=== PATIENT | male | born 1965 | race Hispanic/Latino ===

== ENCOUNTER 2018-11-18 19:18 | Emergency (ER) | payer MEDICAID, OTHER ==
[2018-11-18] MEDS ORDERED: ONDANSETRON ODT 4 MG TAB ONE (19:43)
[2018-11-18] MEDS ORDERED: MAG HYDROX/AL HYDROX/SIMETH ES 30 ML SUSP UDCUP ONE (20:02)
[2018-11-18] MEDS ORDERED: LIDOCAINE HCL 2% VISCOUS 15 ML UDCUP ONE (20:02)
[2018-11-18 20:09] LABS: BASOPHILS % (AUTO) 1.2 % (0.0-5.0); EOSINOPHILS % (AUTO) 4.5 % (0.0-8.0); HEMATOCRIT 41.1 % (42-54); LYMPHOCYTES % (AUTO) 30.3 % (21.0-51.0); MEAN CORPUSCULAR HEMOGLOBIN 30.6 pg (27.0-33.0); MEAN CORPUSCULAR HGB CONC 34.4 g/dL (32.0-36.0); MEAN CORPUSCULAR VOLUME 88.7 fL (79-99); MONOCYTES % (AUTO) 9.9 % (3.0-13.0); NEUTROPHILS % (AUTO) 54.1 % (40.0-77.0); NUCLEATED RED BLOOD CELLS 0.1 % (0.0-0.19); PLATELET COUNT (AUTO) 184 K/uL (130-400); RED BLOOD CELL COUNT(AUTO) 4.63 MIL/uL (4.50-6.20); RED CELL DISTRIBUTION WIDTH 13.5 % (11.0-15.5); WHITE BLOOD COUNT (AUTO) 7.4 K/uL (4.8-10.8)
[2018-11-18 20:11] LABS: APPEARANCE,URINE Clear (CLEAR); BILIRUBIN,URINE Negative (NEGATIVE); COLOR,URINE Yellow (YELLOW); GLUCOSE, URINE (UA) Negative (NEGATIVE); KETONES,URINE Negative (NEGATIVE); LEUKOCYTE ESTERASE ,URINE Negative (NEGATIVE); NITRATE,URINE Negative (NEGATIVE); OCCULT BLOOD,URINE Negative (NEGATIVE); PH,URINE 5.5 (5.0-8.0); PROTEIN,URINE Negative (NEGATIVE)
[2018-11-18 20:28] LABS: CREATININE 0.9 mg/dL (0.5-1.5); POTASSIUM 3.6 mmol/L (3.5-5.1)
[2018-11-18 20:32] LABS: ALBUMIN 3.9 g/dL (3.5-5.0); BILIRUBIN,DIRECT 0.1 mg/dL (0.0-0.3); BILIRUBIN,TOTAL 0.4 mg/dL (0.2-1.0)
== END 2018-11-18 22:12 | disposition home or self-care (01) ==
LOC: EDH 19:18
DX: A09 Infectious gastroenteritis and colitis, unspecified (principal); F20.9 Schizophrenia, unspecified; Z72.0 Tobacco use; Z91.011 Allergy to milk products
CPT/HCPCS: 36415; 80048; 80076; 81003; 83690; 85025

== ENCOUNTER 2018-12-24 22:05 | Emergency (ER) | payer OTHER | END 2018-12-24 23:13 | disposition home or self-care (01) | LOC: EDH 22:05 | DX: Z60.9 Problem related to social environment, unspecified (principal); F20.9 Schizophrenia, unspecified; R11.0 Nausea; Z91.011 Allergy to milk products; Z72.0 Tobacco use | CPT/HCPCS: 99281 ==

== ENCOUNTER 2018-12-31 22:09 | Emergency (ER) | payer OTHER ==
[2018-12-31 22:59] LABS: BASOPHILS % (AUTO) 1.1 % (0.0-5.0); EOSINOPHILS % (AUTO) 15.4 % (0.0-8.0); HEMATOCRIT 34.6 % (42-54); LYMPHOCYTES % (AUTO) 21.1 % (21.0-51.0); MEAN CORPUSCULAR HEMOGLOBIN 30.5 pg (27.0-33.0); MEAN CORPUSCULAR HGB CONC 34.1 g/dL (32.0-36.0); MEAN CORPUSCULAR VOLUME 89.4 fL (79-99); MONOCYTES % (AUTO) 6.9 % (3.0-13.0); NEUTROPHILS % (AUTO) 55.5 % (40.0-77.0); NUCLEATED RED BLOOD CELLS 0.1 % (0.0-0.19); PLATELET COUNT (AUTO) 198 K/uL (130-400); RED BLOOD CELL COUNT(AUTO) 3.86 MIL/uL (4.50-6.20); RED CELL DISTRIBUTION WIDTH 14.1 % (11.0-15.5); WHITE BLOOD COUNT (AUTO) 5.1 K/uL (4.8-10.8)
[2018-12-31 23:00] LABS: APPEARANCE,URINE Clear (CLEAR); BILIRUBIN,URINE Negative (NEGATIVE); COLOR,URINE Yellow (YELLOW); GLUCOSE, URINE (UA) Negative (NEGATIVE); KETONES,URINE Negative (NEGATIVE); LEUKOCYTE ESTERASE ,URINE Negative (NEGATIVE); NITRATE,URINE Negative (NEGATIVE); OCCULT BLOOD,URINE Negative (NEGATIVE); PROTEIN,URINE Negative (NEGATIVE)
[2018-12-31] MEDS ORDERED: FAMOTIDINE 20MG TAB 20 MG TAB ONE (23:01)
[2018-12-31 23:07] LABS: AMPHET/METH SCREEN,URINE NEGATIVE (NEGATIVE); BARBITURATE SCREEN, URINE NEGATIVE (NEGATIVE); BENZODIAZEPINES SCREEN,URINE POSITIVE (NEGATIVE); CANNABINOID SCREEN,URINE NEGATIVE (NEGATIVE); CARBON DIOXIDE 28 mmol/L (21-32); CHLORIDE 105 mmol/L (101-111); COCAINE SCREEN,URINE NEGATIVE (NEGATIVE); CREATININE 0.9 mg/dL (0.5-1.5); GLOMERULAR FILTR. RATE CALC 95 mL/min (>60); GLUCOSE,RANDOM 114 mg/dL (70-105); OPIATE SCREEN,URINE NEGATIVE (NEGATIVE); PHENCYCLIDINE SCREEN,URINE NEGATIVE (NEGATIVE); POTASSIUM 3.4 mmol/L (3.5-5.1); SODIUM SERUM 141 mmol/L (136-145); UREA NITROGEN, BLOOD 10 mg/dL (7-18)
[2018-12-31 23:12] LABS: ALANINE AMINOTRANSFERASE 45 U/L (12-78); ALBUMIN 3.2 g/dL (3.5-5.0); ASPARTATE AMINOTRANSFERASE 44 U/L (10-37); BILIRUBIN,TOTAL 0.2 mg/dL (0.2-1.0); CREATINE KINASE, TOTAL 360 U/L (21-232); SALICYLATE 3.9 mg/dL (2.8-20.0); TOTAL PROTEIN, SERUM 6.4 g/dL (6.0-8.3)
[2018-12-31 23:14] LABS: ACETAMINOPHEN < 1 mcg/mL (10-29)
== END 2019-01-01 03:15 | disposition home or self-care (01) ==
LOC: EDH 22:09
DX: F20.9 Schizophrenia, unspecified (principal); J45.909 Unspecified asthma, uncomplicated; Z72.0 Tobacco use
CPT/HCPCS: 36415; 80053; 80305; 81003; 82550; 85025; 99284; G0480; G0481

== ENCOUNTER 2019-01-07 02:44 | Emergency (ER) | payer OTHER ==
[2019-01-07] MEDS ORDERED: TETANUS/DIPHTHERIA TOXOID [ADULT] 0.5 ML VIAL IM ONE (03:25)
[2019-01-07] MEDS ORDERED: SULFAMETHOX-TMP DS 800/160 TAB ONE (03:25)
== END 2019-01-07 03:40 | disposition home or self-care (01) ==
LOC: EDH 02:44
DX: S61.201D Unspecified open wound of left index finger without damage to nail, subsequent encounter (principal); L08.9 Local infection of the skin and subcutaneous tissue, unspecified; J45.909 Unspecified asthma, uncomplicated; F20.9 Schizophrenia, unspecified; Z88.6 Allergy status to analgesic agent; X58.XXXD Exposure to other specified factors, subsequent encounter
CPT/HCPCS: 90471; 90714

== ENCOUNTER 2020-12-02 10:47 | Emergency (ER) | payer OTHER ==
[~2020-12-02] VITALS: Ht 167.6 cm; Wt 63.5 kg
[2020-12-02] MEDS ORDERED: ONDANSETRON ODT 4MG TAB SL SCH (11:30)
[2020-12-02 11:50] LABS: APPEARANCE,URINE Clear (CLEAR); BILIRUBIN,URINE Negative (NEGATIVE); COLOR,URINE Yellow (YELLOW); GLUCOSE, URINE (UA) Negative (NEGATIVE); KETONES,URINE Negative (NEGATIVE); LEUKOCYTE ESTERASE ,URINE Negative (NEGATIVE); NITRATE,URINE Negative (NEGATIVE); OCCULT BLOOD,URINE Negative (NEGATIVE); PH,URINE 7.5 (5.0-8.0); PROTEIN,URINE Negative (NEGATIVE)
[2020-12-02 11:58] LABS: AMPHET/METH SCREEN,URINE NEGATIVE (NEGATIVE); BARBITURATE SCREEN, URINE NEGATIVE (NEGATIVE); BENZODIAZEPINES SCREEN,URINE NEGATIVE (NEGATIVE); CANNABINOID SCREEN,URINE NEGATIVE (NEGATIVE); COCAINE SCREEN,URINE NEGATIVE (NEGATIVE); OPIATE SCREEN,URINE NEGATIVE (NEGATIVE); PHENCYCLIDINE SCREEN,URINE NEGATIVE (NEGATIVE)
[2020-12-02 12:04] VITALS: BP 125/80
[2020-12-02 12:29] LABS: BASOPHILS % (AUTO) 0.8 % (0.0-5.0); EOSINOPHILS % (AUTO) 2.1 % (0.0-8.0); HEMATOCRIT 42.2 % (42-54); LYMPHOCYTES % (AUTO) 38.4 % (21.0-51.0); MEAN CORPUSCULAR HEMOGLOBIN 29.3 pg (27.0-33.0); MEAN CORPUSCULAR HGB CONC 33.4 g/dL (32.0-36.0); MEAN CORPUSCULAR VOLUME 87.6 fL (79-99); MONOCYTES % (AUTO) 12.6 % (3.0-13.0); PLATELET COUNT (AUTO) 181 K/uL (130-400); RED BLOOD CELL COUNT(AUTO) 4.82 MIL/uL (4.50-6.20); RED CELL DISTRIBUTION WIDTH 12.7 % (11.0-15.5); WHITE BLOOD COUNT (AUTO) 7.2 K/uL (4.8-10.8)
[2020-12-02 12:38] LABS: CARBON DIOXIDE 25 mmol/L (21-32); CHLORIDE 105 mmol/L (101-111); CREATININE 0.9 mg/dL (0.5-1.5); GLOMERULAR FILTR. RATE CALC 94 mL/min (>60); GLUCOSE,RANDOM 99 mg/dL (70-105); POTASSIUM 3.3 mmol/L (3.5-5.1); SODIUM SERUM 139 mmol/L (136-145); UREA NITROGEN, BLOOD 9 mg/dL (7-18)
[2020-12-02 12:44] LABS: ALANINE AMINOTRANSFERASE 33 U/L (12-78); ALBUMIN 3.8 g/dL (3.5-5.0); ALCOHOL, BLOOD < 3 mg/dL (0-10); ASPARTATE AMINOTRANSFERASE 25 U/L (10-37); BILIRUBIN,TOTAL 0.3 mg/dL (0.2-1.0); CREATINE KINASE, TOTAL 273 U/L (21-232); SALICYLATE 2.8 mg/dL (2.8-20.0); TOTAL PROTEIN, SERUM 7.1 g/dL (6.0-8.3)
[2020-12-02 12:46] LABS: ACETAMINOPHEN < 1 mcg/mL (10-29)
== END 2020-12-02 17:05 | disposition home or self-care (01) ==
LOC: EDH 10:47
DX: F20.9 Schizophrenia, unspecified (principal); J45.909 Unspecified asthma, uncomplicated; F31.9 Bipolar disorder, unspecified; Z88.6 Allergy status to analgesic agent; Z91.011 Allergy to milk products
CPT/HCPCS: 36415; 80053; 80305; 81003; 82550; 85025; 93005; 99284; G0481

== ENCOUNTER → 2021-02-24 | Emergency (ER) | payer OTHER | END | disposition left against medical advice (07) | LOC: EDH 17:10 | DX: Z53.21 Procedure and treatment not carried out due to patient leaving prior to being seen by health care provider (principal) ==

== ENCOUNTER 2021-09-20 17:56 | Emergency (ER) | payer OTHER ==
[2021-09-20] MEDS ORDERED: 0.9%NACL 1000ML 1,000 ML IV SCH (18:30)
[2021-09-20] MEDS ORDERED: ONDANSETRON 4MG INJ IVP ONE (18:30)
[2021-09-20 18:34] LABS: APPEARANCE,URINE CLEAR (CLEAR); BILIRUBIN,URINE SMALL (NEGATIVE); COLOR,URINE YELLOW (YELLOW); GLUCOSE, URINE (UA) 100 mg/dL (NEGATIVE); KETONES,URINE >=80 mg/dL (NEGATIVE); LEUKOCYTE ESTERASE ,URINE NEGATIVE (NEGATIVE); NITRATE,URINE NEGATIVE (NEGATIVE); OCCULT BLOOD,URINE NEGATIVE (NEGATIVE); PROTEIN,URINE TRACE mg/dL (NEGATIVE)
[2021-09-20 18:40] LABS: AMPHET/METH SCREEN,URINE NEGATIVE (NEGATIVE); BARBITURATE SCREEN, URINE NEGATIVE (NEGATIVE); BENZODIAZEPINES SCREEN,URINE NEGATIVE (NEGATIVE); CANNABINOID SCREEN,URINE NEGATIVE (NEGATIVE); COCAINE SCREEN,URINE POSITIVE (NEGATIVE); PHENCYCLIDINE SCREEN,URINE NEGATIVE (NEGATIVE)
[2021-09-20 18:41] LABS: BACTERIA,URINE Few /HPF (None Seen); RBC,URINE 0-1 /HPF (0-1); WBC,URINE 0-1 /HPF (0-1)
[2021-09-20 18:42] LABS: HYALINE CASTS, URINE 0-1 /LPF (0-1 /LPF); MUCUS,URINE Moderate LPF (None Seen); SQUAMOUS EPITHELIAL CELL,UR Few /HPF (0-2)
[2021-09-20 18:58] LABS: BASOPHILS % (AUTO) 0.7 % (0.0-5.0); EOSINOPHILS % (AUTO) 1.5 % (0.0-8.0); HEMATOCRIT 38.1 % (42-54); LYMPHOCYTES % (AUTO) 13.6 % (21.0-51.0); MEAN CORPUSCULAR HEMOGLOBIN 29.3 pg (27.0-33.0); MEAN CORPUSCULAR HGB CONC 34.4 g/dL (32.0-36.0); MEAN CORPUSCULAR VOLUME 85.2 fL (79-99); MONOCYTES % (AUTO) 13.6 % (3.0-13.0); NEUTROPHILS % (AUTO) 70.3 % (40.0-77.0); PLATELET COUNT (AUTO) 172 K/uL (130-400); RED BLOOD CELL COUNT(AUTO) 4.47 MIL/uL (4.50-6.20); WHITE BLOOD COUNT (AUTO) 7.2 K/uL (4.8-10.8)
[2021-09-20] MEDS ORDERED: LORAZEPAM 0.5 MG TABLET PO ONE (19:00)
[2021-09-20 19:15] LABS: ALBUMIN 3.8 g/dL (3.5-5.0); TOTAL PROTEIN, SERUM 7.1 g/dL (6.0-8.3)
[2021-09-20 19:17] LABS: POTASSIUM 2.8 mmol/L (3.5-5.1)
[2021-09-20] MEDS ORDERED: POTASSIUM BICARB/CIT AC 25 MEQ TABLET.EFF ONE (19:27)
[2021-09-20] MEDS ORDERED: POTASSIUM BICARB/CIT AC 25 MEQ TABLET.EFF PO ONE (19:30)
[2021-09-20 19:50] VITALS: BP 129/78
[2021-09-20] MEDS ORDERED: POTA-187 PO (19:53)
[2021-09-23 14:11] LABS: OPIATES SCREEN URINE Negative ng/mL (Cutoff=300)
== END 2021-09-20 19:56 | disposition home or self-care (01) ==
LOC: EDH 17:56
DX: E87.6 Hypokalemia (principal); E86.0 Dehydration; F14.10 Cocaine abuse, uncomplicated; Z20.822 Contact with and (suspected) exposure to COVID-19; Z88.6 Allergy status to analgesic agent
CPT/HCPCS: 99284; 96374; 71045; 87635; 96361; 84484; 80053; 80305; 85025; 87804 ×2; 36415; 81001; C9803; J7030; J2405 ×2

== ENCOUNTER 2021-09-23 17:19 | Emergency (ER) | payer OTHER ==
[~2021-09-23] VITALS: Ht 165.1 cm; Wt 90.7 kg
[~2021-09-23 17:19] MED LIST: POTA-187 PO
[2021-09-23 18:19] LABS: BASOPHILS % (AUTO) 0.6 % (0.0-5.0); EOSINOPHILS % (AUTO) 3.2 % (0.0-8.0); HEMATOCRIT 37.1 % (42-54); LYMPHOCYTES % (AUTO) 16.3 % (21.0-51.0); MEAN CORPUSCULAR HEMOGLOBIN 29.4 pg (27.0-33.0); MEAN CORPUSCULAR HGB CONC 34.8 g/dL (32.0-36.0); MEAN CORPUSCULAR VOLUME 84.5 fL (79-99); MONOCYTES % (AUTO) 12.4 % (3.0-13.0); NEUTROPHILS % (AUTO) 67.3 % (40.0-77.0); PLATELET COUNT (AUTO) 233 K/uL (130-400); RED BLOOD CELL COUNT(AUTO) 4.39 MIL/uL (4.50-6.20); WHITE BLOOD COUNT (AUTO) 6.2 K/uL (4.8-10.8)
[2021-09-23 18:27] LABS: SODIUM SERUM 141 mmol/L (136-145)
[2021-09-23] MEDS ORDERED: ACETAMINOPHEN 500 MG TABLET PO ONE (18:30)
[2021-09-23 18:32] LABS: CARBON DIOXIDE 26 mmol/L (21-32); CHLORIDE 103 mmol/L (101-111); CREATININE 1.1 mg/dL (0.5-1.5); GLUCOSE,RANDOM 98 mg/dL (70-105); UREA NITROGEN, BLOOD 10 mg/dL (7-18)
[2021-09-23] MEDS ORDERED: 0.9%NACL 1000ML 1,000 ML IV SCH (18:33)
[2021-09-23 18:40] LABS: ASPARTATE AMINOTRANSFERASE 161 U/L (10-37)
[2021-09-23 18:46] LABS: ACETAMINOPHEN < 1 mcg/mL (10-29); ALANINE AMINOTRANSFERASE 157 U/L (12-78); ALBUMIN 3.8 g/dL (3.5-5.0); ALCOHOL, BLOOD < 3 mg/dL (0-10); GLOMERULAR FILTR. RATE CALC 83 mL/min (>60); SALICYLATE < 2.8 mg/dL (2.8-20.0); TOTAL PROTEIN, SERUM 7.1 g/dL (6.0-8.3)
[2021-09-23 18:47] LABS: CREATINE KINASE, TOTAL 860 U/L (21-232)
[2021-09-23] MEDS ORDERED: 0.9%NACL 1000ML 1,000 ML IV ONE (19:00)
[2021-09-23 19:21] VITALS: BP 122/67
[2021-09-23] MEDS ORDERED: POTASSIUM BICARB/CIT AC 25 MEQ TABLET.EFF PO ONE (19:30)
== END 2021-09-23 19:51 | disposition left against medical advice (07) ==
LOC: EDH 17:19
DX: T67.5XXA Heat exhaustion, unspecified, initial encounter (principal); E86.0 Dehydration; M62.82 Rhabdomyolysis; Z79.899 Other long term (current) drug therapy; Z88.6 Allergy status to analgesic agent; X58.XXXA Exposure to other specified factors, initial encounter; Y93.89 Activity, other specified; Y92.89 Other specified places as the place of occurrence of the external cause; Y99.8 Other external cause status
CPT/HCPCS: 99285; 71045; 82550; 80053; 85025; 83605; 36415; 93005; G0481

== ENCOUNTER 2021-09-24 14:50 | Emergency (ER) | payer OTHER ==
[~2021-09-24] VITALS: Ht 162.6 cm; Wt 61.7 kg
[2021-09-24 15:37] LABS: BASOPHILS % (AUTO) 0.9 % (0.0-5.0); EOSINOPHILS % (AUTO) 4.3 % (0.0-8.0); HEMATOCRIT 36.4 % (42-54); LYMPHOCYTES % (AUTO) 24.7 % (21.0-51.0); MEAN CORPUSCULAR HEMOGLOBIN 29.2 pg (27.0-33.0); MEAN CORPUSCULAR HGB CONC 34.3 g/dL (32.0-36.0); NEUTROPHILS % (AUTO) 55.9 % (40.0-77.0); PLATELET COUNT (AUTO) 229 K/uL (130-400); RED BLOOD CELL COUNT(AUTO) 4.28 MIL/uL (4.50-6.20); RED CELL DISTRIBUTION WIDTH 13.3 % (11.0-15.5); WHITE BLOOD COUNT (AUTO) 5.8 K/uL (4.8-10.8)
[2021-09-24 15:51] LABS: CARBON DIOXIDE 26 mmol/L (21-32); CHLORIDE 105 mmol/L (101-111); CREATININE 0.9 mg/dL (0.5-1.5); GLOMERULAR FILTR. RATE CALC 93 mL/min (>60); GLUCOSE,RANDOM 102 mg/dL (70-105); SODIUM SERUM 140 mmol/L (136-145); UREA NITROGEN, BLOOD 12 mg/dL (7-18)
[2021-09-24 15:56] LABS: ALANINE AMINOTRANSFERASE 124 U/L (12-78); ALBUMIN 3.7 g/dL (3.5-5.0); ALCOHOL, BLOOD < 3 mg/dL (0-10); ASPARTATE AMINOTRANSFERASE 107 U/L (10-37); TOTAL PROTEIN, SERUM 6.7 g/dL (6.0-8.3)
[2021-09-24 15:57] LABS: ACETAMINOPHEN < 1 mcg/mL (10-29); SALICYLATE < 2.8 mg/dL (2.8-20.0)
[2021-09-24] MEDS ORDERED: POTASSIUM BICARB/CIT AC 25 MEQ TABLET.EFF PO ONE ×2 (16:30→23:00)
[2021-09-24] MEDS ORDERED: THIAMINE HCL 100 MG/ML 2ML VIAL IVP SCH (20:30)
[2021-09-24] MEDS ORDERED: 0.9%NACL 1000ML 1,000 ML IV ONE ×2 (20:30→23:00)
[2021-09-25 08:07] LABS: AMPHET/METH SCREEN,URINE NEGATIVE (NEGATIVE); BENZODIAZEPINES SCREEN,URINE NEGATIVE (NEGATIVE); CANNABINOID SCREEN,URINE NEGATIVE (NEGATIVE); COCAINE SCREEN,URINE NEGATIVE (NEGATIVE); PHENCYCLIDINE SCREEN,URINE NEGATIVE (NEGATIVE)
[2021-09-25 08:15] LABS: APPEARANCE,URINE CLEAR (CLEAR); BILIRUBIN,URINE SMALL (NEGATIVE); COLOR,URINE YELLOW (YELLOW); GLUCOSE, URINE (UA) NEGATIVE (NEGATIVE); KETONES,URINE >=80 mg/dL (NEGATIVE); LEUKOCYTE ESTERASE ,URINE NEGATIVE (NEGATIVE); NITRATE,URINE NEGATIVE (NEGATIVE); OCCULT BLOOD,URINE NEGATIVE (NEGATIVE); PROTEIN,URINE NEGATIVE (NEGATIVE); UROBILINOGEN,URINE >=8.0 mg/dL (0.2-1.0)
[2021-09-25 08:37] LABS: BACTERIA,URINE Rare /HPF (None Seen); RBC,URINE 0-1 /HPF (0-1); SQUAMOUS EPITHELIAL CELL,UR Rare /HPF (0-2); WBC,URINE 0-1 /HPF (0-1)
[2021-09-25] MEDS ORDERED: DiphenhydrAMINE HCL 50 MG/ML VIAL ONE (14:37)
[2021-09-25] MEDS ORDERED: DIAZEPAM 5 MG/ML 2 ML SYG ONE (14:38)
[2021-09-25] MEDS: HALOPERIDOL INJ 5 MG/ML VIAL ONE ×2 (14:44→14:45)
[2021-09-25] MEDS ORDERED: DiphenhydrAMINE HCL 50 MG/ML VIAL IM ONE (15:00)
[2021-09-25] MEDS ORDERED: HALOPERIDOL INJ 5 MG/ML VIAL IM SCH (15:00)
[2021-09-25] MEDS ORDERED: DIAZEPAM 5 MG/ML 2 ML SYG IM ONE (15:00)
[2021-09-25] MEDS ORDERED: LORAZEPAM 2 MG/ML 1 ML VIAL IM ONE (15:00)
[2021-09-27 06:35] VITALS: BP 133/76
[2021-09-28 06:14] LABS: OPIATES SCREEN URINE Negative ng/mL (Cutoff=300)
== END 2021-09-27 10:32 ==
LOC: EDH 14:50
DX: F20.9 Schizophrenia, unspecified (principal); F12.10 Cannabis abuse, uncomplicated; R41.0 Disorientation, unspecified; Z20.822 Contact with and (suspected) exposure to COVID-19; Z88.8 Allergy status to other drugs, medicaments and biological substances; Z88.6 Allergy status to analgesic agent
CPT/HCPCS: 99285; 96374; 96361; 87635; 80053; 80305; 85025; 81001; 36415; 93005; 96372 ×3; G0481; C9803; J3411; J1200; J1630; J3360

== ENCOUNTER 2022-10-14 20:39 | Emergency (ER) | payer OTHER ==
[~2022-10-14] VITALS: Ht 167.6 cm; Wt 79.4 kg
[2022-10-14] MEDS ORDERED: ONDANSETRON 4MG INJ ONE (20:47)
[2022-10-14] MEDS ORDERED: ONDANSETRON 4MG INJ IVP ONE (21:00)
[2022-10-14] MEDS ORDERED: 0.9%NACL 1000ML 1,000 ML IV ONE ×2 (21:00→22:30)
[2022-10-14 21:04] LABS: BASOPHILS # (AUTO) 0.05 K/uL (0.00-0.20); BASOPHILS % (AUTO) 0.6 % (0.0-5.0); EOSINOPHILS # (AUTO) 0.02 K/uL (0.00-0.70); EOSINOPHILS % (AUTO) 0.2 % (0.0-8.0); HEMATOCRIT 41.7 % (42-54); IMMATURE GRANULOCYTE ABSOLUTE 0.04 K/uL (0-1); LYMPHOCYTES # (AUTO) 1.7 K/uL (1.0-4.8); LYMPHOCYTES % (AUTO) 19.1 % (21.0-51.0); MEAN CORPUSCULAR HEMOGLOBIN 30.1 pg (27.0-33.0); MEAN CORPUSCULAR HGB CONC 35.3 g/dL (32.0-36.0); MEAN CORPUSCULAR VOLUME 85.5 fL (79-99); MONOCYTES # (AUTO) 0.6 K/uL (0.1-1.0); MONOCYTES % (AUTO) 6.8 % (3.0-13.0); NEUTROPHILS # (AUTO) 6.3 K/uL (1.8-7.7); NEUTROPHILS % (AUTO) 72.8 % (40.0-77.0); PLATELET COUNT (AUTO) 190 K/uL (130-400); RED BLOOD CELL COUNT(AUTO) 4.88 MIL/uL (4.50-6.20); WHITE BLOOD COUNT (AUTO) 8.7 K/uL (4.8-10.8)
[2022-10-14 21:39] LABS: APPEARANCE,URINE CLEAR (CLEAR); BILIRUBIN,URINE NEGATIVE (NEGATIVE); COLOR,URINE LIGHT-YELLOW (YELLOW); GLUCOSE, URINE (UA) 500 mg/dL (NEGATIVE); KETONES,URINE NEGATIVE (NEGATIVE); LEUKOCYTE ESTERASE ,URINE NEGATIVE Leu/uL (NEGATIVE); NITRATE,URINE NEGATIVE (NEGATIVE); OCCULT BLOOD,URINE NEGATIVE (NEGATIVE); PH,URINE 6.5 (5.0-8.0); PROTEIN,URINE NEGATIVE (NEGATIVE); UROBILINOGEN,URINE 0.2 mg/dL (0.2-1.0)
[2022-10-14 21:46] LABS: AMPHET/METH SCREEN,URINE NEGATIVE (NEGATIVE); BARBITURATE SCREEN, URINE NEGATIVE (NEGATIVE); BENZODIAZEPINES SCREEN,URINE NEGATIVE (NEGATIVE); CANNABINOID SCREEN,URINE NEGATIVE (NEGATIVE); COCAINE SCREEN,URINE NEGATIVE (NEGATIVE); OPIATE SCREEN,URINE NEGATIVE (NEGATIVE); PHENCYCLIDINE SCREEN,URINE NEGATIVE (NEGATIVE)
[2022-10-14 21:48] LABS: ADD UA MICROSCOPIC YES
[2022-10-14 21:49] LABS: BACTERIA,URINE RARE /HPF (None Seen); MUCUS,URINE RARE LPF (None Seen); RBC,URINE 0-1 /HPF (0-1); WBC,URINE 0-1 /HPF (0-1)
[2022-10-14 21:53] LABS: ALCOHOL, BLOOD < 3 mg/dL (0-10)
[2022-10-14 21:54] LABS: ACETAMINOPHEN < 1 mcg/mL (10-29); SALICYLATE < 2.8 mg/dL (2.8-20.0)
[2022-10-14 21:55] LABS: ALBUMIN 3.6 g/dL (3.5-5.0); BILIRUBIN,TOTAL 0.3 mg/dL (0.2-1.0); CREATININE 0.8 mg/dL (0.5-1.5); TOTAL PROTEIN, SERUM 6.7 g/dL (6.0-8.3)
[2022-10-14 21:57] LABS: POTASSIUM 2.9 mmol/L (3.5-5.1)
[2022-10-14 22:27] VITALS: BP 140/88; PULSE 102; RESP 16; O2SAT 96
[2022-10-14] MEDS ORDERED: POTASSIUM BICARB/CIT AC 25 MEQ TABLET.EFF PO ONE (22:30)
== END 2022-10-15 01:11 | disposition left against medical advice (07) ==
LOC: EDH 20:39
DX: R11.10 Vomiting, unspecified (principal); R10.9 Unspecified abdominal pain; R19.7 Diarrhea, unspecified; E86.0 Dehydration; R07.89 Other chest pain; F20.9 Schizophrenia, unspecified; Z88.6 Allergy status to analgesic agent; Z88.8 Allergy status to other drugs, medicaments and biological substances
CPT/HCPCS: 99285; 74176; 96374; 71045; 96361; 84484; 80053; 80305; 83690; 85025; 36415; 93005; 81001; J7030; J2405; G0481

== ENCOUNTER 2022-10-15 07:56 | Emergency (ER) | payer OTHER ==
[~2022-10-15] VITALS: Ht 160 cm; Wt 79.5 kg
[2022-10-15 08:30] LABS: APPEARANCE,URINE CLEAR (CLEAR); BILIRUBIN,URINE NEGATIVE (NEGATIVE); COLOR,URINE LIGHT-YELLOW (YELLOW); GLUCOSE, URINE (UA) NEGATIVE (NEGATIVE); KETONES,URINE NEGATIVE (NEGATIVE); LEUKOCYTE ESTERASE ,URINE NEGATIVE Leu/uL (NEGATIVE); NITRATE,URINE NEGATIVE (NEGATIVE); OCCULT BLOOD,URINE NEGATIVE (NEGATIVE); PROTEIN,URINE NEGATIVE (NEGATIVE); UROBILINOGEN,URINE 0.2 mg/dL (0.2-1.0)
[2022-10-15 08:36] LABS: ADD UA MICROSCOPIC NO
[2022-10-15 08:36] LABS: BASOPHILS # (AUTO) 0.05 K/uL (0.00-0.20); BASOPHILS % (AUTO) 0.6 % (0.0-5.0); HEMATOCRIT 40.9 % (42-54); IMMATURE GRANULOCYTE ABSOLUTE 0.03 K/uL (0-1); LYMPHOCYTES # (AUTO) 1.7 K/uL (1.0-4.8); MEAN CORPUSCULAR HEMOGLOBIN 29.9 pg (27.0-33.0); MEAN CORPUSCULAR HGB CONC 34.2 g/dL (32.0-36.0); MEAN CORPUSCULAR VOLUME 87.2 fL (79-99); MONOCYTES # (AUTO) 0.9 K/uL (0.1-1.0); MONOCYTES % (AUTO) 10.2 % (3.0-13.0); NEUTROPHILS # (AUTO) 5.9 K/uL (1.8-7.7); NEUTROPHILS % (AUTO) 68.8 % (40.0-77.0); PLATELET COUNT (AUTO) 193 K/uL (130-400); RED BLOOD CELL COUNT(AUTO) 4.69 MIL/uL (4.50-6.20); RED CELL DISTRIBUTION WIDTH 13.2 % (11.0-15.5); WHITE BLOOD COUNT (AUTO) 8.6 K/uL (4.8-10.8)
[2022-10-15 08:46] LABS: CARBON DIOXIDE 25 mmol/L (21-32); CHLORIDE 98 mmol/L (101-111); CREATININE 0.8 mg/dL (0.5-1.5); GLOMERULAR FILTR. RATE CALC 105 mL/min (>90); GLUCOSE,RANDOM 110 mg/dL (70-105); POTASSIUM 3.3 mmol/L (3.5-5.1); SODIUM SERUM 135 mmol/L (136-145); UREA NITROGEN, BLOOD 5 mg/dL (7-18)
[2022-10-15 08:49] LABS: AMPHET/METH SCREEN,URINE NEGATIVE (NEGATIVE); BARBITURATE SCREEN, URINE NEGATIVE (NEGATIVE); BENZODIAZEPINES SCREEN,URINE NEGATIVE (NEGATIVE); CANNABINOID SCREEN,URINE NEGATIVE (NEGATIVE); COCAINE SCREEN,URINE NEGATIVE (NEGATIVE); OPIATE SCREEN,URINE NEGATIVE (NEGATIVE); PHENCYCLIDINE SCREEN,URINE NEGATIVE (NEGATIVE)
[2022-10-15 08:50] LABS: ALANINE AMINOTRANSFERASE 81 U/L (12-78); ASPARTATE AMINOTRANSFERASE 72 U/L (10-37); BILIRUBIN,TOTAL 0.5 mg/dL (0.2-1.0); TOTAL PROTEIN, SERUM 7.4 g/dL (6.0-8.3)
[2022-10-15 08:51] LABS: ACETAMINOPHEN < 1 mcg/mL (10-29); ALCOHOL, BLOOD < 3 mg/dL (0-10); SALICYLATE < 2.8 mg/dL (2.8-20.0)
[2022-10-15 08:52] LABS: COVID19 (SARS ANTIGEN RAPID) PRESUMPTIVE NEGATIVE (NEGATIVE); INFLUENZA TYPE A Negative For Type A (NEGATIVE); INFLUENZA TYPE B Negative For Type B (NEGATIVE)
[2022-10-15 11:46] VITALS: BP 132/72; PULSE 74; RESP 16; O2SAT 98
== END 2022-10-15 11:52 | disposition home or self-care (01) ==
LOC: EDH 07:56
DX: F20.9 Schizophrenia, unspecified (principal); Z98.890 Other specified postprocedural states; Z88.6 Allergy status to analgesic agent; Z88.8 Allergy status to other drugs, medicaments and biological substances; Z91.011 Allergy to milk products
CPT/HCPCS: 99285; 71045; 87426; 80053; 80305; 83690; 85025; 87804 ×2; 36415; 93005; 81003; G0481

== ENCOUNTER 2022-10-16 17:50 | Emergency (ER) | payer OTHER ==
[~2022-10-16] VITALS: Ht 157.5 cm; Wt 68.0 kg
[~2022-10-16 17:50] MED LIST changes: -LORAZEPAM 1 MG TABLET ONE
== END 2022-10-16 18:58 | disposition left against medical advice (07) ==
LOC: EDH 17:50
DX: R11.10 Vomiting, unspecified (principal); Z53.21 Procedure and treatment not carried out due to patient leaving prior to being seen by health care provider
CPT/HCPCS: 99281

== ENCOUNTER → 2022-10-16 | Emergency (ER) | payer MEDICAID, OTHER ==
[~2022-10-16] VITALS: Ht 170.2 cm; Wt 74.8 kg
[~2022-10-16] MED LIST changes: +LORAZEPAM 1 MG TABLET ONE
[2022-10-16 04:52] VITALS: O2SAT 96
[2022-10-16 04:53] VITALS: BP 120/84; PULSE 117; RESP 16
[2022-10-16 05:27] LABS: BASOPHILS # (AUTO) 0.06 K/uL (0.00-0.20); BASOPHILS % (AUTO) 0.7 % (0.0-5.0); EOSINOPHILS % (AUTO) 2.2 % (0.0-8.0); HEMATOCRIT 44.2 % (42-54); IMMATURE GRANULOCYTE ABSOLUTE 0.03 K/uL (0-1); LYMPHOCYTES # (AUTO) 2.3 K/uL (1.0-4.8); MEAN CORPUSCULAR HGB CONC 34.8 g/dL (32.0-36.0); MEAN CORPUSCULAR VOLUME 86.2 fL (79-99); MONOCYTES % (AUTO) 10.6 % (3.0-13.0); NEUTROPHILS # (AUTO) 5.6 K/uL (1.8-7.7); NEUTROPHILS % (AUTO) 61.2 % (40.0-77.0); PLATELET COUNT (AUTO) 209 K/uL (130-400); RED BLOOD CELL COUNT(AUTO) 5.13 MIL/uL (4.50-6.20); RED CELL DISTRIBUTION WIDTH 13.5 % (11.0-15.5); WHITE BLOOD COUNT (AUTO) 9.2 K/uL (4.8-10.8)
[2022-10-16 05:30] LABS: APPEARANCE,URINE CLEAR (CLEAR); BILIRUBIN,URINE NEGATIVE (NEGATIVE); COLOR,URINE YELLOW (YELLOW); GLUCOSE, URINE (UA) NEGATIVE (NEGATIVE); KETONES,URINE 10 mg/dL (NEGATIVE); LEUKOCYTE ESTERASE ,URINE NEGATIVE Leu/uL (NEGATIVE); NITRATE,URINE NEGATIVE (NEGATIVE); OCCULT BLOOD,URINE NEGATIVE (NEGATIVE); PROTEIN,URINE 10 mg/dL (NEGATIVE); UROBILINOGEN,URINE 0.2 mg/dL (0.2-1.0)
[2022-10-16 05:31] LABS: ADD UA MICROSCOPIC NO
[2022-10-16 05:35] LABS: AMPHET/METH SCREEN,URINE NEGATIVE (NEGATIVE); BARBITURATE SCREEN, URINE NEGATIVE (NEGATIVE); BENZODIAZEPINES SCREEN,URINE NEGATIVE (NEGATIVE); CANNABINOID SCREEN,URINE NEGATIVE (NEGATIVE); COCAINE SCREEN,URINE NEGATIVE (NEGATIVE); OPIATE SCREEN,URINE NEGATIVE (NEGATIVE); PHENCYCLIDINE SCREEN,URINE NEGATIVE (NEGATIVE)
[2022-10-16 05:37] LABS: CARBON DIOXIDE 24 mmol/L (21-32); CHLORIDE 100 mmol/L (101-111); CREATININE 0.9 mg/dL (0.5-1.5); GLOMERULAR FILTR. RATE CALC 101 mL/min (>90); GLUCOSE,RANDOM 142 mg/dL (70-105); POTASSIUM 3.3 mmol/L (3.5-5.1); SODIUM SERUM 136 mmol/L (136-145); UREA NITROGEN, BLOOD 6 mg/dL (7-18)
[2022-10-16 05:42] LABS: ACETAMINOPHEN < 1 mcg/mL (10-29); ALANINE AMINOTRANSFERASE 85 U/L (12-78); ALBUMIN 4.1 g/dL (3.5-5.0); ALCOHOL, BLOOD < 3 mg/dL (0-10); ASPARTATE AMINOTRANSFERASE 138 U/L (10-37); BILIRUBIN,TOTAL 0.8 mg/dL (0.2-1.0); SALICYLATE < 2.8 mg/dL (2.8-20.0); TOTAL PROTEIN, SERUM 7.5 g/dL (6.0-8.3)
== END ==
LOC: EDH 04:45
DX: F20.9 Schizophrenia, unspecified (principal); R00.0 Tachycardia, unspecified; Z91.011 Allergy to milk products; E11.9 Type 2 diabetes mellitus without complications; Z88.6 Allergy status to analgesic agent; Z88.8 Allergy status to other drugs, medicaments and biological substances
CPT/HCPCS: 99283; 99281; 80053; 80305; 85025; 36415; G0481

== ENCOUNTER 2022-10-19 04:03 | Emergency (ER) | payer MEDICAID, OTHER ==
[2022-10-19 04:05] VITALS: BP 125/84; PULSE 86; RESP 18
[2022-10-19] MEDS ORDERED: ZIPRASIDONE MESYLATE 20 MG/VIAL IM SCH (04:30)
[2022-10-19 04:34] LABS: BASOPHILS # (AUTO) 0.04 K/uL (0.00-0.20); BASOPHILS % (AUTO) 0.6 % (0.0-5.0); EOSINOPHILS # (AUTO) 0.41 K/uL (0.00-0.70); EOSINOPHILS % (AUTO) 6.6 % (0.0-8.0); HEMATOCRIT 38.5 % (42-54); IMMATURE GRANULOCYTE ABSOLUTE 0.03 K/uL (0-1); LYMPHOCYTES # (AUTO) 1.7 K/uL (1.0-4.8); LYMPHOCYTES % (AUTO) 27.9 % (21.0-51.0); MEAN CORPUSCULAR HEMOGLOBIN 30.4 pg (27.0-33.0); MEAN CORPUSCULAR HGB CONC 34.8 g/dL (32.0-36.0); MEAN CORPUSCULAR VOLUME 87.3 fL (79-99); MONOCYTES # (AUTO) 0.9 K/uL (0.1-1.0); MONOCYTES % (AUTO) 14.4 % (3.0-13.0); NEUTROPHILS # (AUTO) 3.1 K/uL (1.8-7.7); PLATELET COUNT (AUTO) 195 K/uL (130-400); RED BLOOD CELL COUNT(AUTO) 4.41 MIL/uL (4.50-6.20); RED CELL DISTRIBUTION WIDTH 13.4 % (11.0-15.5); WHITE BLOOD COUNT (AUTO) 6.2 K/uL (4.8-10.8)
[2022-10-19 04:48] LABS: APPEARANCE,URINE CLEAR (CLEAR); BILIRUBIN,URINE NEGATIVE (NEGATIVE); COLOR,URINE YELLOW (YELLOW); GLUCOSE, URINE (UA) NEGATIVE (NEGATIVE); KETONES,URINE NEGATIVE (NEGATIVE); LEUKOCYTE ESTERASE ,URINE NEGATIVE Leu/uL (NEGATIVE); NITRATE,URINE NEGATIVE (NEGATIVE); OCCULT BLOOD,URINE NEGATIVE (NEGATIVE); PROTEIN,URINE 20 mg/dL (NEGATIVE)
[2022-10-19 04:51] LABS: ADD UA MICROSCOPIC YES
[2022-10-19 04:54] LABS: ALANINE AMINOTRANSFERASE 97 U/L (12-78); ALBUMIN 3.6 g/dL (3.5-5.0); ASPARTATE AMINOTRANSFERASE 132 U/L (10-37); BILIRUBIN,TOTAL 0.6 mg/dL (0.2-1.0); CARBON DIOXIDE 28 mmol/L (21-32); CHLORIDE 102 mmol/L (101-111); CREATININE 0.8 mg/dL (0.5-1.5); GLOMERULAR FILTR. RATE CALC 105 mL/min (>90); GLUCOSE,RANDOM 123 mg/dL (70-105); SODIUM SERUM 139 mmol/L (136-145); TOTAL PROTEIN, SERUM 6.8 g/dL (6.0-8.3); UREA NITROGEN, BLOOD 7 mg/dL (7-18)
[2022-10-19 04:55] LABS: ACETAMINOPHEN < 1 mcg/mL (10-29); ALCOHOL, BLOOD < 3 mg/dL (0-10); SALICYLATE < 2.8 mg/dL (2.8-20.0)
[2022-10-19 04:55] LABS: AMPHET/METH SCREEN,URINE NEGATIVE (NEGATIVE); BARBITURATE SCREEN, URINE NEGATIVE (NEGATIVE); BENZODIAZEPINES SCREEN,URINE NEGATIVE (NEGATIVE); CANNABINOID SCREEN,URINE NEGATIVE (NEGATIVE); COCAINE SCREEN,URINE NEGATIVE (NEGATIVE); MUCUS,URINE FEW LPF (None Seen); OPIATE SCREEN,URINE NEGATIVE (NEGATIVE); PHENCYCLIDINE SCREEN,URINE NEGATIVE (NEGATIVE); RBC,URINE 0-1 /HPF (0-1); SQUAMOUS EPITHELIAL CELL,UR RARE /HPF (0-2); WBC,URINE 0-1 /HPF (0-1)
== END 2022-10-19 05:12 | disposition left against medical advice (07) ==
LOC: EDH 04:03
DX: R68.89 Other general symptoms and signs (principal); Z53.21 Procedure and treatment not carried out due to patient leaving prior to being seen by health care provider
CPT/HCPCS: 99281; 80053; 80305; 85025; 36415; 81001; J3486; G0481